=== PATIENT | female | born 1965 | race Caucasian/White ===

== ENCOUNTER 2017-11-04 19:44 | Outpatient (REF) | payer BC, SELFPAY ==
--- NOTE | 2017-11-04 16:15 | PAPFT_PTH ---
PATIENT: Keri Rios LOC: [facility] U#:[id number] AGE/SX: 51/F ROOM: RE11/04/[address]: Judy Melgoza APRN : 1965 BED: DIS: 11/04/2017 SPEC #: [id number] RECD: 11/05/17 13:19 STATUS: HENIRK RELoc #: [id number] JAQUELINE: 11/04/17 16:[address]: Judy Melgoza DEPT: [facility] Cytology RECD BY: Reta Carter Tissues: 1 - CX/ENDOCX FOR PAP SMEARS Procedures: PAP THIN PREP/UVM Screening HPV DNA PROBE Comments: [id number]
== END 2017-11-04 20:04 ==
LOC: LBN 19:44
PROVIDERS: PCP Nurse Practitioner Family; Visit Provider Nurse Practitioner Family
DX: Z12.4 Encounter for screening for malignant neoplasm of cervix (principal); Z11.51 Encounter for screening for human papillomavirus (HPV)
CPT/HCPCS: 88142; 87624

== ENCOUNTER 2017-11-12 01:49 | Outpatient (CLI) | payer BC, SELFPAY ==
[2017-11-12 09:58] LABS: Anion Gap 8.9 mmol/L (3-11); BUN 3 mg/dL (7-18); CO2 28.1 mmol/L (21.0-32.0); CREATININE 0.78 mg/dL (0.55-1.02); Calcium 8.9 mg/dL (8.5-10.1); Chloride 101 mmol/L (98-107); Cholesterol 159 mg/dL (50-200); Glucose 85 mg/dL (70-100); HDL Cholesterol 73 mg/dL (40-60); LDL CHOLESTEROL 80 mg/dL (<100); Potassium 4.3 mmol/L (3.5-5.1); Sodium 138 mmol/L (136-145); TSH (W/Ref FT4) 0.87 uIU/mL (0.358-3.74); Triglyceride 44 mg/dL (30-150)
[2017-11-13 11:29] LABS: HIV-1/2 Ag & Ab Screen Negative (NEGAT)
[2017-11-13 12:15] LABS: Hepatitis C Ab w Rflx HCV PCR Negative (NEGAT)
== END 2017-11-12 02:09 ==
PROVIDERS: PCP Nurse Practitioner Family; Visit Provider Nurse Practitioner Family
DX: R03.0 Elevated blood-pressure reading, without diagnosis of hypertension (principal); E03.9 Hypothyroidism, unspecified; F41.8 Other specified anxiety disorders; Z13.220 Encounter for screening for lipoid disorders; Z01.84 Encounter for antibody response examination
CPT/HCPCS: 36415; 80048; 80061; 83721; 86803; 87389; 84443

== ENCOUNTER 2017-11-26 01:26 | Outpatient (CLI) | payer BC, SELFPAY ==
--- NOTE | 2017-11-14 16:05 | DI.MAMMO_ITS ---
SYMPTOM/DIAGNOSIS: SCREENING, Z12.31 MAMMOGRAMS: Mammograms were interpreted according to the usual protocol including computer analysis with CAD system, tomosynthesis and C view imaging. The breast tissue is heterogeneously radiodense which limits the sensitivity of the study. There is no dominant mass. There are no suspicious calcifications. There has been no significant interval change when compared with prior images. SUMMARY: No evidence fo malignancy. Category 1. Yearly screening mammography is recommended. Breast density, Category C. SA ASSESSMENT OF FINDINGS: Negative. Category 1. Patient will receive a letter notifying them of these results. Bi-RADS category C. The breasts are heterogeneously dense, which may obscure small masses.
== END 2017-11-26 01:46 ==
PROVIDERS: PCP Nurse Practitioner Family; Visit Provider Nurse Practitioner Family
DX: Z12.31 Encounter for screening mammogram for malignant neoplasm of breast (principal)
CPT/HCPCS: 77063; 77067

== ENCOUNTER 2018-10-31 15:23 | Emergency (ER) | payer BC, SELFPAY ==
[2018-10-31 15:30] VITALS: BP 169/92; PULSE 80; RESP 18; TEMP 36.6; O2SAT 100
--- NOTE | 2018-10-31 16:21 | DI.RAD_ITS ---
EXAM: XR FOOT LT COMPLETE INDICATION: pain, injury 5th toe. COMPARISON: RIGHT FOOT COMPLETE from 11/08/2010 TECHNIQUE: 2D digital imaging was performed. FINDINGS: There is a fracture at the base of the proximal phalanx of the little toe. Minimal comminution and di splacement is identified. The fracture extends into the intra-articular joint. There is no evidence of dislocation.
--- NOTE | 2018-10-31 16:22 | W.ED.GENAD ---
Discharge Plan Disposition Patient Disposition: HOME Condition: Good Discharge Details Chief Complaint: Orthopedic Clinical Impression: Fracture of toe Primary Care Provider: Judy Melgoza ED Provider: Joanne Rao Home Meds and New Rx's Prescriptions: Continued olopatadine [Patanol] 5 ML drops 1 drp Ophthalmic BID PRNRF: 0 loratadine [Claritin Liqui-Gel] 10 MG capsule 10 mg PO DAILY RF: 0 albuterol sulfate [ProAir HFA] 8.5 GM HFA aerosol inhaler 1 - 2 puff Inhalation Q4-6H PRN Qty: 1 RF: 3 Symbicort 10.2 GM HFA aerosol inhaler 2 puff Inhalation BID Qty: 3 RF: 3 triamcinolone acetonide 0.1 % cream 1 applic Topical 2-4 times daily PRN Qty: 15 RF: 2 levothyroxine 50 mcg tablet 50 mcg PO DAILY Qty: 90 RF: 3 sertraline 100 mg tablet 150 mg PO DAILY Qty: 135 RF: 3 naproxen sodium [Aleve] 220 MG capsule 2 tab PO BID PRNRF: 0 Discharge Instructions Instructions: Toe Fracture (ED) Additional Instructions: Rest. Activities as tolerated. Elevate injury to prevent swelling. Ice to the area of discomfort for 15 min. 3-5 times daily. Motrin every 8 hours with food or Tylenol every 6 hours for soreness if needed over the counter for comfort. Followup with orthopedic doctor for reevaluation. Return for any worsening or concerns sooner if needed. Stand Alone Forms: Work Release Referrals: Silverio Gutierrez MD [ [facility] STAFF PHYSICIAN] - Discharge Data Discharge Date/Time-TO BE ENTERED AT DEPARTURE: 10/31/18 17:33 Medical Decision Making Patient injured her foot last night ultimately fractured the proximal aspect of her fifth toe. This is an intra-articular fracture which will be splinted with lee tape in a postop shoe. Crutches provided for support. Encouraged minimal weightbearing for 1 week and then follow-up with orthopedic doctor locally. Patient reports understanding and agrees with plan of care. HPI General Date/Time Provider Initiated Documentation: 10/31/18 15:33. HPI Narrative: Patient presents for complaints of injury to her left foot. Patient reports she was walking and her toe got stuck in a cat bowl. Pt reports injury occurred yesterday. Ecchymosis and pain with ambulation noted since that time. Concern for possible fracture. Patient presents with her toes lee taped. Denies open wounds. Related Data Home Medications Medication Instructions Recorded Confirmed naproxen sodium [Aleve] 2 tab PO BID PRN 02/20/14 10/31/18 olopatadine [Patanol] 1 drp OPHTHALMIC BID PRN drp 08/23/15 10/31/18 loratadine [Claritin Liqui-Gel] 10 mg PO DAILY 05/22/17 10/31/18 albuterol sulfate [ProAir HFA] 1 - 2 puff INHALATION Q4-6H PRN #1 09/10/17 10/31/18 inhaler Symbicort 2 puff INHALATION BID #3 inhaler 10/09/17 10/31/18 triamcinolone acetonide 0.1 % 1 applic TOPICAL 2-4 times daily 01/25/18 10/31/18 topical cream PRN #15 gm levothyroxine 50 mcg tablet 50 mcg PO DAILY #90 tab-cap 09/16/18 10/31/18 sertraline 100 mg tablet 150 mg PO DAILY #135 tab 09/16/18 10/31/18 Previous Rx's Medication Instructions Recorded albuterol sulfate [ProAir HFA] 1 - 2 puff INHALATION Q4-6H PRN #1 09/10/17 inhaler Symbicort 2 puff INHALATION BID #3 inhaler 10/09/17 triamcinolone acetonide 0.1 % 1 applic TOPICAL 2-4 times daily 01/25/18 topical cream PRN #15 gm levothyroxine 50 mcg tablet 50 mcg PO DAILY #90 tab-cap 09/16/18 sertraline 100 mg tablet 150 mg PO DAILY #135 tab 09/16/18 Allergies Allergy/AdvReac Type Severity Reaction Status Date / Time Sulfa (Sulfonamide Allergy Unknown RASH, FEVER Verified 10/31/18 15:34 Antibiotics) General Stated Complaint: Orthopedic JEANNE: 4 Review of Systems Review of Systems Narrative: CONSTITUTIONAL: The patient denies fevers, chills. EYES: Denies vision changes, blurry vision, or eye pain. ENT: Denies hearing changes, tinnitus, vertigo, sore throat. CARDIAC: Denies chest pain, SOB. RESPIRATORY: Denies cough, sputum. Denies difficulty breathing. GASTROINTESTINAL: Denies abdominal pain, changes in bowel, vomiting or nausea. GENITOURINARY: Denies dysuria, or frequency of urination. MUSCULOSKELETAL: Limping gait, toe pain NEUROLOGIC: Denies headaches, Denies focal weakness. Denies numbness. INTEGUMENT: Denies rashes. PSYCHIATRIC: Denies behavior changes. Denies anxiety or depression. ENDOCRINOLOGY: Denies fatigue. PSYCHIATRY: Denies depression, agitation or anxiety limited [facility] Medical History Allergic rhinitis Allergic rhinitis (Chronic 05/02/13) Allergy shots Anxiety and depression Anxiety and depression (Chronic) Chronic otitis media (Chronic 05/02/13) Conductive hearing loss (Chronic 05/02/13) Deviated septum (Chronic) Dysfunction of left eustachian tube (Chronic 02/27/16) High serum high density lipoprotein (HDL) (Chronic) 11/2017 labs: 10-year ASCVD risk = ~1.1% --> no statin indicated at this time Hypothyroidism Hypothyroidism (Chronic 09/15/16) Right carpal tunnel syndrome (Chronic 03/01/15) 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) Unspecified asthma (Chronic 04/02/11) Family History Mother Hypertensive disorder, systemic arterial Heart disease Mental disorder depression Father Functional vision problem Heart disease Social History Smoking/Tobacco Use Status: Never Alcohol Intake: current Alcohol Intake frequency: a few times a month Drug use: Never Substance use type: does not use current occupation: Teacher What type of physical activity do you participate in: regular exercise Frequency: daily Do you feel safe at home: Yes Do you feel safe in your relationship?: Yes Exam Narrative Exam Narrative: CONST: Healthy appearing patient, in no acute distress. Well hydrated. Alert and alert. HENMT: Head nomocephalic, normal to inspection. Atraumatic. Hearing grossly normal. EYES: General normal appearance. Alignment normal. Eyelids normal. Conjunctiva normal. NECK: Normal visual inspection. FROM. Trachea midline. No Midline tenderness. CHEST: Normal insepection of the chest. RESP: Normal respiratory effort. Speaking full sentences. No cough. No audible wheezing. No retractions. CARDIO: No JVD. MUSCULOSKELETAL: Normal Gait. FROM of all extremities. No knee pain with palpation, sharp pain with palpation with calf pain with palpation. No Achilles tenderness. Achilles tendon intact. No ankle pain with palpation. Pulses intact to the dorsal aspect of the foot. Ecchymosis and swelling noted at the base of the fourth and fifth toes on the left foot. Tenderness with palpation through the distal metatarsal as well as the proximal toe. Cap refill normal distally. Sensation intact distally. No open wounds. SKIN: Normal. Dry. No rashes. NEURO: Alert and awake. Speech clear. PSYCH: Normal affect. Cooperative. Course Vital Signs Vital signs: Vital Signs Temperature 36.6 C 10/31/18 15:30 Pulse 80 10/31/18 15:30 Respiratory Rate 18 10/31/18 15:30 Blood Pressure 169/92 H 10/31/18 15:30 Pulse Oximetry 100 10/31/18 15:30 Temperature 36.6 C 10/31/18 15:30 Temperature Source Temporal Artery Scan 10/31/18 15:30 Pulse 80 10/31/18 15:30 Respiratory Rate 18 10/31/18 15:30 Respiratory Effort Non-Labored 10/31/18 15:33 Blood Pressure 169/92 H 10/31/18 15:30 Blood Pressure Position Supine 10/31/18 15:30 Pulse Oximetry 100 10/31/18 15:30 Oxygen Delivery Method Room Air 10/31/18 15:30 Oxygen Flow Rate 0 10/31/18 15:30 Pain Level 5 10/31/18 15:34
--- NOTE | 2018-10-31 17:03 | DI.VRAD_ITS ---
PROCEDURE INFORMATION: Exam: XR Left Foot Complete Exam date and time: 10/31/2018 4:22 PM Clinical history: 52 years old, female; Other: Pain, injury 5th toe TECHNIQUE: Imaging protocol: XR Left foot. Views: 3 or more views. COMPARISON: No relevant prior studies available. FINDINGS: Bones/joints: There is a minimally comminuted and displaced fracture to the base of the little toe proximal phalanx with associated intra-articular extension of fracture lines. No other acutely displaced fractures are appreciated. Soft tissues: There is soft tissue swelling about the little toe. IMPRESSION: Fracture at the base of the little toe proximal phalanx, detailed above. Dictated and Authenticated by: Augie Blue MD. Ordering:RODGER Rubio MD
== END 2018-10-31 17:33 | disposition home or self-care (01) ==
PROVIDERS: Emergency Provider Physician Assistant; PCP Nurse Practitioner Family
DX: S92.515A Nondisplaced fracture of proximal phalanx of left lesser toe(s), initial encounter for closed fracture (principal); W22.8XXA Striking against or struck by other objects, initial encounter
CPT/HCPCS: 28510; 73630; E0114

== ENCOUNTER 2018-11-24 15:57 | Outpatient (CLI) | payer BC, SELFPAY ==
[2018-11-24 17:04] LABS: TSH (W/Ref FT4) 1.91 uIU/mL (0.36-3.74)
== END 2018-11-24 16:17 ==
PROVIDERS: PCP Nurse Practitioner Family; Visit Provider Nurse Practitioner Family
DX: E03.9 Hypothyroidism, unspecified (principal)
CPT/HCPCS: 36415; 84443

== ENCOUNTER 2019-11-25 11:33 | Outpatient (REF) | payer BC, SELFPAY | END 2019-11-25 11:53 | LOC: LBN 11:33 | PROVIDERS: PCP Nurse Practitioner Family; Visit Provider Student in an Organized Health Care Education/Training Program | DX: R30.0 Dysuria (principal); R35.0 Frequency of micturition; R31.0 Gross hematuria | CPT/HCPCS: 87077; 87086; 87186 ==

== ENCOUNTER 2019-12-08 11:21 | Outpatient (REF) | payer BC, SELFPAY | END 2019-12-08 11:41 | LOC: LBN 11:21 | PROVIDERS: PCP Nurse Practitioner Family; Visit Provider Nurse Practitioner Family | DX: N39.0 Urinary tract infection, site not specified (principal) | CPT/HCPCS: 87086 ==

== ENCOUNTER 2019-12-27 01:59 | Outpatient (CLI) | payer BC, SELFPAY ==
[2019-12-27 15:30] LABS: TSH (W/Ref FT4) 1.89 uIU/mL (0.36-3.74)
== END 2019-12-27 02:19 ==
PROVIDERS: PCP Nurse Practitioner Family; Visit Provider Nurse Practitioner Family
DX: E03.9 Hypothyroidism, unspecified (principal)
CPT/HCPCS: 36415; 84443

== ENCOUNTER 2020-02-21 01:26 | Outpatient (CLI) | payer BC, SELFPAY ==
--- NOTE | 2020-02-21 09:00 | DI.MAMMO_ITS ---
EXAM: MAMMO SCREENING CLINICAL HISTORY: screening,Z12.39 TECHNIQUE: Mammograms were interpreted according to the usual protocol including computer analysis w [employer] CAD system, tomosynthesis and C-view imaging. COMPARISON: 2011 through 2017 FINDINGS: The breasts are composed of heterogeneously dense fibroglandular densities, Breast Density category C . No suspicious masses or suspicious microcalcifications are seen. No skin thickening or abnormal axillary lymph nodes are seen. There has been no significant change from prior exams. IMPRESSION: BI-RADS Category 1, Negative mammogram. Yearly screening mammography is recommended. Breast Density Category C, heterogeneously Dense. The mammogram demonstrates the patient's breast tissue is dense. Dense breast tissue is very common a nd is not abnormal but dense breast tissue can make it harder to find cancer on a mammogram. Also, de nse breast tissue may increase breast cancer risk. This information about the result of the mammogram report was provided to the patient to raise their awareness. Use this report when you speak with the patient about their risks for breast cancer, which includes their family history. At that time, you may recommend additional screening tests (Ultrasound or MRI) as they might be useful based on their r isk. A negative radiographic report should not delay biopsy if a dominant or clinically suspicious mass is present. Up to ten percent of cancers are not identified on mammography. A negative report may reinforce clinical impression. Adenosis and dense breasts may obscure an underlying neoplasm. False positive reports average 6 to 10%.
== END 2020-02-21 01:46 ==
PROVIDERS: PCP Nurse Practitioner Family; Visit Provider Nurse Practitioner Family
DX: Z12.31 Encounter for screening mammogram for malignant neoplasm of breast (principal)
CPT/HCPCS: 77063; 77067

== ENCOUNTER 2020-04-12 09:44 | Outpatient (CLI) | payer BC, SELFPAY ==
--- NOTE | 2020-04-12 09:30 | RT.EKG_ITS ---
APPROVED REPORT Exam: Resting ECG Patient Location: O HR:72 bpm ECG Measurements Heart Rate 72 AXIS OR 138 P 54 QRSd 79 QRS 55 QT 374 T 24 QTc 409 Conclusion Sinus rhythm...normal P axis, V-rate 60- 99 Probable left atrial enlargement...P >50mS, <-0.10mV V1
== END 2020-04-12 09:45 | disposition home or self-care (01) ==
LOC: DI.KIM 09:45
PROVIDERS: PCP Nurse Practitioner Family; Visit Provider Nurse Practitioner Family
DX: R00.2 Palpitations (principal); R01.1 Cardiac murmur, unspecified
CPT/HCPCS: 93010

== ENCOUNTER 2020-04-13 15:19 | Outpatient (CLI) | payer BC, SELFPAY ==
--- NOTE | 2020-04-30 10:39 | W.ZIOMONITOR ---
Date of service: 04/30/20 Time of Service: 10:39 14 Day Reimbursement Auditor Referring Provider:: Buddy Indications:: Arrhythmia Note: This is a 14-day monitor order for indication of arrhythmia. ?The patient was in normal sinus rhythm for the majority of the recording with an average heart rate of 76 bpm. ?There were 25 episodes of supraventricular tachycardia with the longest lasting 24 beats. The maximum rate was 176 bpm. Symptoms were not recorded during these episodes. ?There were rare PACs and rare PVCs. ?There were no episodes of ventricular tachycardia. ?There were no episodes of atrial fibrillation, no pauses greater than 3 seconds and no evidence of high degree heart block. ?There were no patient triggered events.
== END 2020-04-13 15:20 | disposition home or self-care (01) ==
PROVIDERS: PCP Nurse Practitioner Family; Visit Provider Nurse Practitioner Family
DX: I49.8 Other specified cardiac arrhythmias (principal)
CPT/HCPCS: 93246

== ENCOUNTER 2020-05-08 02:42 | Outpatient (CLI) | payer BC, SELFPAY ==
--- NOTE | 2020-05-08 13:50 | DI.US_ITS ---
APPROVED REPORT EXAM: Comprehensive 2D, Doppler, and color-flow Echocardiogram Patient Location: Out-Patient Surveying Crew Rodman: Shelia Mills RDCS (AE) Indications: Abnormal EKG, Murmur Other Information Study Quality: Good Conclusion Left Ventricle : The left ventricle is normal size. The left ventricular systolic function is normal. The left ventricular ejection fraction is within the normal range. There is normal left ventricular wall thickness. There is normal LV segmental wall motion. The left ventricular diastolic function is normal. LVEF is 60%. Right Ventricle : The right ventricle is normal size. The right ventricular systolic function is norm al. The RVSP is 22.8 mmHg. Atria : The left atrium size is normal. The right atrium size is normal. Mitral Valve : The mitral valve is normal in structure. Mild mitral regurgitation. No evidence of mary anne ral valve stenosis. Great Vessels : The aortic root is normal in size. The ascending aorta is mildly dilated. Aortic arch is normal in caliber. IVC is normal in size and collapses >50% with inspiration. Please see remainder of study for further details. Wall motion Left Ventricle The left ventricle is normal size. The left ventricular systolic function is normal. The left ventric ular ejection fraction is within the normal range. There is normal left ventricular wall thickness. T here is normal LV segmental wall motion. The left ventricular diastolic function is normal. There is no ventricular septal defect visualized. LVEF is 60%. Right Ventricle The right ventricle is normal size. The right ventricular systolic function is normal. The RVSP is 22 .8 mmHg. Atria The left atrium size is normal. The right atrium size is normal. The interatrial septum is intact wit h no evidence for an atrial septal defect. Aortic Valve The aortic valve is normal in structure. Aortic valve is trileaflet. There is no aortic valvular sten osis. No aortic regurgitation is present. Mitral Valve The mitral valve is normal in structure. No evidence of mitral valve stenosis. Mild mitral regurgitat ion. Tricuspid Valve The tricuspid valve is normal in structure. There is no tricuspid valve stenosis. Mild tricuspid regu rgitation. Pulmonic Valve The pulmonary valve is normal in structure. There is no pulmonic valvular stenosis. There is no pulmo renay valvular regurgitation. Great Vessels The aortic root is normal in size. The ascending aorta is mildly dilated. Aortic arch is normal in ca liber. IVC is normal in size and collapses >50% with inspiration. Pericardium There is no pericardial effusion. 2D Dimensions IVSD d PLAX 0.71 cm F: 0.6-1.0 LV Vol A2C d MOD 84.8 mL LVPW d PLAX 0.71 cm F: 0.6 - 1.0 LV Vol A4C d MOD 74.8 mL LVID d PLAX 4.39 cm F: 3.8 - 5.2 LA vol/ BSA A2C s A-L 21.6 mL/m2 LVDs 2.80 cm F: 2.2 - 3.5 LA vol/ BSA A4C s A-L 28.7 mL/m2 Ao Root d 2.86 cm F: 2.7 - 3.3 LA Vol/ BSA Biplane s A-L 27.9 mL/m2 RA Area A4C 16.01 cm2 LA Area A4C s MOD 15.90 cm2 RA Vol/ BSA A4C s A-L 29.5 mL/m2 LA Area A2C s MOD 12.32 cm2 Ao Asc Diam d 3.44 cm F: 2.3 - 3.1 LV EF A4C MOD 61.2 % LV EF Teichholz 65.3 % LV EF A2C MOD 58.5 % LVEF ([place]'s) 61.19 % F: 54 - 74 LV EF Biplane MOD 61.2 % LV Volume 70.84 mL F: 46 - 106 SV 51.77 mL LV Volume Index 47.86 mL/m2 F: 29 - 61 SV Index 34.92 mL/m2 LV Vol Biplane MOD 84.6 mL FS 35.60 % M-Mode TAPSE 2.91 cm (M/F) >1.7 LV Diastology MV E' medial 0.092 (>0.07 m/s) E/A Ratio 1.6 LV E/e MED 8.50 (<14) MV E Vmax 0.78 (0.4-1.3 m/s) MV E' lateral 0.122 (>0.1 m/s) MV A Vmax 0.50 (0.4-1.3 m/s) LV E/e LAT 6.35 (<14) MV E/A Ratio 1.45 MV E/E' medial 8.53 MV E/E' lateral 6.40 Aortic Valve LVOT Area 2.72 cm2 AoV Area Vmax 2.57 cm2 LVOT Vmax 1.02 m/s AoV Area/ BSA (Vmax) 1.73 cm2/m2 LVOT Mean Elmer. 0.64 m/s COURT Mean Elmer. 2.17 cm2 LVOT Peak Grad 4.2 mmHg CUORT Mean Elmer. Index 1.47 cm2/m2 LVOT Mean Grad 1.9 mmHg LVOT VTI 0.231 m LVOT Diam s 1.85 cm AoV Vmax 1.09 m/s Velocity Ratio 0.93 AoV Mean Elmer. 0.80 m/s AoV Peak Grad 4.7 mmHg LVOT SV 62.93 mL AoV Mean Grad 2.8 mmHg AoV VTI 0.268 m AoV Area VTI 2.35 cm2 AoV Area/ BSA (VTI) 1.58 cm/m2 Mitral Valve MV DT 195 (160-240 msec) MR Vmax 5.70 m/s MV PHT 56 msec MR VTI 1.973 m MV Area PHT 3.90 cm2 MR Peak Grad 129.8 mmHg MV VTI 0.236 m MR Mean Grad 102.5 mmHg MV VTI Annulus 0.249 m MR PISA Radius 0.57 cm MV Area VTI 2.83 (4.0-6.0 cm2) MR EROA 0.13 cm2 MR Aliasing Velocity 0.35 m/s MR PISA 2.08 cm2 Pulmonary Valve PV Vmax 0.84 (0.5-1.5 m/s) RVOT Peak Gr. 1.91 mmHg PV Peak Grad 2.8 mmHg RVOT Mean Gr. 1.25 mmHg PV Mean Grad 2.1 mmHg RVOT VTI 0.152 m PV VTI 0.180 m RVOT Vmax 0.69 m/s Tricuspid Valve TR Peak Grad 19.7 mmHg TR Vmax 2.22 m/s RA Pressure 3.00 mmHg RVSP (TR) 22.8 mmHg
== END 2020-05-08 03:02 ==
PROVIDERS: PCP Nurse Practitioner Family; Visit Provider Nurse Practitioner Family
DX: R94.31 Abnormal electrocardiogram [ECG] [EKG] (principal); R01.1 Cardiac murmur, unspecified; I34.0 Nonrheumatic mitral (valve) insufficiency; I77.810 Thoracic aortic ectasia
CPT/HCPCS: 93306

== ENCOUNTER 2020-06-18 14:27 | Outpatient (REF) | payer BC, SELFPAY | END 2020-06-18 14:28 | disposition home or self-care (01) | LOC: LBN 14:27 | PROVIDERS: PCP Nurse Practitioner Family; Visit Provider Family Medicine | DX: R30.0 Dysuria (principal) | CPT/HCPCS: 87086 ==

== ENCOUNTER 2021-03-20 01:51 | Outpatient (CLI) | payer BC, SELFPAY ==
[2021-03-20 12:56] LABS: Anion Gap 8.1 mmol/L (3-11); BUN 10 mg/dL (7-18); CO2 27.9 mmol/L (21.0-32.0); CREATININE 0.6 mg/dL (0.55-1.02); Calcium 8.5 mg/dL (8.5-10.1); Chloride 95 mmol/L (98-107); Glucose 82 mg/dL (74-106); Potassium 4.3 mmol/L (3.5-5.1); Sodium 131 mmol/L (136-145)
== END 2021-03-20 01:52 | disposition home or self-care (01) ==
LOC: LBO 01:51
PROVIDERS: PCP Nurse Practitioner Family; Visit Provider Nurse Practitioner Family
DX: E03.9 Hypothyroidism, unspecified (principal); Z13.1 Encounter for screening for diabetes mellitus
CPT/HCPCS: 36415; 80048; 84443

== ENCOUNTER 2021-03-28 14:26 | Outpatient (REF) | payer BC, SELFPAY ==
[2021-03-28 19:16] LABS: Sodium, Urine 36 mmol/L
[2021-03-28 20:19] LABS: Sodium 128 mmol/L (136-145)
[2021-03-29 17:39] LABS: Osmolality, Urine 114 mOsm/kg (150-1,150)
== END 2021-03-28 14:27 | disposition home or self-care (01) ==
LOC: LBN 14:26
PROVIDERS: PCP Nurse Practitioner Family; Visit Provider Nurse Practitioner Family
DX: E87.1 Hypo-osmolality and hyponatremia (principal)
CPT/HCPCS: 83935; 84295; 84300

== ENCOUNTER 2021-04-08 02:58 | Outpatient (CLI) | payer BC, SELFPAY ==
[2021-04-08 15:34] LABS: Anion Gap 8.9 mmol/L (3-11); BUN 8 mg/dL (7-18); CO2 26.1 mmol/L (21.0-32.0); CREATININE 0.6 mg/dL (0.55-1.02); Calcium 9.2 mg/dL (8.5-10.1); Chloride 97 mmol/L (98-107); Glucose 101 mg/dL (74-106); Sodium 132 mmol/L (136-145)
== END 2021-04-08 02:59 | disposition home or self-care (01) ==
LOC: LBO 02:58
PROVIDERS: PCP Nurse Practitioner Family; Visit Provider Nurse Practitioner
DX: E87.1 Hypo-osmolality and hyponatremia (principal)
CPT/HCPCS: 36415; 80048

== ENCOUNTER 2021-04-23 01:30 | Outpatient (CLI) | payer BC, SELFPAY ==
[2021-04-23 13:27] LABS: Sodium, Urine 6 mmol/L
[2021-04-23 14:38] LABS: Anion Gap 8.4 mmol/L (3-11); BUN 7 mg/dL (7-18); CO2 27.6 mmol/L (21.0-32.0); CREATININE 0.7 mg/dL (0.55-1.02); Calcium 8.9 mg/dL (8.5-10.1); Chloride 97 mmol/L (98-107); Glucose 90 mg/dL (74-106); Potassium 4.2 mmol/L (3.5-5.1); Sodium 133 mmol/L (136-145)
[2021-04-23 22:27] LABS: Osmolality, Urine 90 mOsm/kg (150-1,150)
== END 2021-04-23 01:31 | disposition home or self-care (01) ==
LOC: LBO 01:30
PROVIDERS: PCP Nurse Practitioner Family; Visit Provider Nurse Practitioner Family
DX: E87.1 Hypo-osmolality and hyponatremia (principal)
CPT/HCPCS: 36415; 80048; 83935; 84300

== ENCOUNTER → 2021-07-05 00:57 | Outpatient (CLI) | payer BC, SELFPAY ==
--- NOTE | 2021-07-05 15:06 | DI.RAD_ITS ---
Exam(s) XR ANKLE LT COMPLETE EXAM: XR ANKLE LT COMPLETE CLINICAL HISTORY: Likely sprain, evaluate for stress frx, S93.402A TECHNIQUE: 2D digital imaging was performed. Four views. COMPARISON: CR RIGHT ANKLE COMPLETE from 10/12/2009 FINDINGS: BONES: No acute fracture is present. No bony destructive lesion is seen. JOINTS:The ankle mortise is normally aligned. SOFT TISSUE: Normal. IMPRESSION: Unremarkable radiographs of the left ankle. DATA REPOSITORY: RADIATION DOSE DELIVERED:
== END ==
PROVIDERS: PCP Nurse Practitioner Family; Visit Provider Family Medicine
DX: S93.402A Sprain of unspecified ligament of left ankle, initial encounter (principal); M25.572 Pain in left ankle and joints of left foot
CPT/HCPCS: 73610

== ENCOUNTER 2021-10-30 02:58 | Outpatient (CLI) | payer BC, SELFPAY ==
[2021-10-30 15:54] LABS: Anion Gap 8.1 mmol/L (3-11); BUN 12 mg/dL (7-18); CO2 28.9 mmol/L (21.0-32.0); CREATININE 0.8 mg/dL (0.55-1.02); Calcium 9.2 mg/dL (8.5-10.1); Chloride 95 mmol/L (98-107); Estimated GFR 85.89 (mL/min/1.73m2); Glucose 99 mg/dL (74-106); Potassium 4.2 mmol/L (3.5-5.1); Sodium 132 mmol/L (136-145)
== END 2021-10-30 02:59 | disposition home or self-care (01) ==
LOC: LBO 02:58
PROVIDERS: PCP Nurse Practitioner Family; Visit Provider Nurse Practitioner Family
DX: E87.1 Hypo-osmolality and hyponatremia (principal)
CPT/HCPCS: 36415; 80048

== ENCOUNTER 2022-04-17 02:52 | Outpatient (CLI) | payer BC, SELFPAY ==
[2022-04-17 10:39] LABS: ALT 20 U/L (14-59); AST 21 U/L (15-37); Alkaline Phosphatase 92 U/L (46-116); Anion Gap 6.3 mmol/L (3-11); BUN 7 mg/dL (7-18); Bilirubin, Total 0.6 mg/dL (0.2-1.0); CO2 29.7 mmol/L (21.0-32.0); CREATININE 0.7 mg/dL (0.55-1.02); Calcium 9.1 mg/dL (8.5-10.1); Calculated LDL 106 mg/dL (<100); Chloride 97 mmol/L (98-107); Cholesterol 190 mg/dL (<200); Estimated GFR 100.19 (mL/min/1.73m2); Glucose 101 mg/dL (74-106); HDL Cholesterol 74 mg/dL (40-60); Potassium 4.6 mmol/L (3.5-5.1); Sodium 133 mmol/L (136-145); TSH (W/Ref FT4) 1.59 uIU/mL (0.36-3.74); Total Protein 7.2 g/dL (6.4-8.2); Triglyceride 50 mg/dL (<150)
== END 2022-04-17 02:53 | disposition home or self-care (01) ==
LOC: LBO 02:52
PROVIDERS: PCP Nurse Practitioner Family; Visit Provider Nurse Practitioner Family
DX: E78.5 Hyperlipidemia, unspecified (principal); E03.9 Hypothyroidism, unspecified; I10 Essential (primary) hypertension; E87.1 Hypo-osmolality and hyponatremia; Z13.1 Encounter for screening for diabetes mellitus
CPT/HCPCS: 36415; 80053; 80061; 84443

== ENCOUNTER 2022-05-08 01:30 | Outpatient (CLI) | payer BC, SELFPAY ==
--- NOTE | 2022-05-08 08:15 | DI.MAMMO_ITS ---
Exam(s) MAMMO SCREENING EXAM: MAMMO SCREENING CLINICAL HISTORY: screening,z12.39 TECHNIQUE: Mammograms were interpreted according to the usual protocol including computer analysis w [employer] CAD system, tomosynthesis and C-view imaging. COMPARISON: 2013 through 2019 FINDINGS: The breasts are composed of heterogeneously dense fibroglandular densities, Breast Density category C . No suspicious masses or suspicious microcalcifications are seen. No skin thickening or abnormal axillary lymph nodes are seen. There has been no significant change from prior exams. IMPRESSION: BI-RADS Category 1, Negative mammogram. Yearly screening mammography is recommended. Breast Density Category C, heterogeneously Dense. The mammogram demonstrates the patient's breast tissue is dense. Dense breast tissue is very common a nd is not abnormal but dense breast tissue can make it harder to find cancer on a mammogram. Also, de nse breast tissue may increase breast cancer risk. This information about the result of the mammogram report was provided to the patient to raise their awareness. Use this report when you speak with the patient about their risks for breast cancer, which includes their family history. At that time, you may recommend additional screening tests (Ultrasound or MRI) as they might be useful based on their r isk. A negative radiographic report should not delay biopsy if a dominant or clinically suspicious mass is present. Up to ten percent of cancers are not identified on mammography. A negative report may reinforce clinical impression. Adenosis and dense breasts may obscure an underlying neoplasm. False positive reports average 6 to 10%.
== END 2022-05-08 01:50 ==
LOC: DI 01:30
PROVIDERS: PCP Nurse Practitioner Family; Visit Provider Nurse Practitioner Family
DX: Z12.31 Encounter for screening mammogram for malignant neoplasm of breast (principal)
CPT/HCPCS: 77063; 77067

== ENCOUNTER 2022-06-17 13:31 | Outpatient (CLI) | payer BC, SELFPAY ==
--- NOTE | 2022-06-17 13:42 | DI.RAD_ITS ---
Exam(s) XR CERVICAL SPINE COMP 4-5V EXAM: XR CERVICAL SPINE COMP 4-5V CLINICAL HISTORY: Radicular symptoms in C8 distritibution M79.2 NEURALGIA AND NEURITIS, PAIN. TECHNIQUE: 2D digital imaging was performed. COMPARISON: No exams were available for comparison FINDINGS: Six views There is no evidence acute fracture nor offset of the spinal laminar line. There is moderate disc sp maddie narrowing C4-5, C5-6, and C6-7 levels. There is mild anterolisthesis of C4 upon C5 related to fa cet arthropathy. There is multilevel facet arthropathy here. On the oblique views there are multile [place] Luschka joint osteophytes which are most prominent on the left side at C4-5, C5-6 and C6-7 levels . There are no cervical ribs. IMPRESSION: Multilevel chronic degenerative disc disease. Multilevel facet arthrosis with degenerative anterolisthesis of C 4 upon C5 as well as C3 upon C4. DATA REPOSITORY: RADIATION DOSE DELIVERED:
== END 2022-06-17 13:51 ==
LOC: DI 13:31
PROVIDERS: PCP Nurse Practitioner Family; Visit Provider Family Medicine
DX: M79.2 Neuralgia and neuritis, unspecified (principal); M51.36 Other intervertebral disc degeneration, lumbar region
CPT/HCPCS: 72050

== ENCOUNTER 2022-07-28 10:37 | Day surgery (SDC) | payer BC, SELFPAY ==
--- NOTE | 2022-07-27 19:07 | W.ANESPRE ---
General Info Date of Service Date Performed: 07/28/22 Height: 5 ft 2 in Weight: 55.338 kg Body Mass Index (BMI): 22.3 Surgical Procedure: Operation Date: 07/28/22 12:05 Proposed Procedure Side Surgeon anupama Blancas MD Meds Allergies and Home Medications Allergies Allergy/AdvReac Type Severity Reaction Status Date / Time Sulfa (Sulfonamide Allergy Unknown RASH, FEVER Verified 07/28/22 10:58 Antibiotics) amoxicillin AdvReac Intermediate Diarrhea Verified 07/28/22 10:58 Home Medication Medication Instructions Recorded loratadine 10 mg capsule (Claritin 10 mg PO DAILY PRN 05/22/17 Liqui-Gel) ascorbate calcium (vitamin C) 500 500 mg PO BID 12/29/19 mg tablet calcium carbonate 600 mg-vitamin 1 cap PO DIRECTED 12/29/19 D3 12.5 mcg (500 unit) capsule (Calcium 600 with Vitamin D3) cholecalciferol (vitamin D3) 25 25 mcg PO DAILY 12/29/19 mcg (1,000 unit) capsule cyanocobalamin (vitamin B-12) 1,000 mcg PO DAILY 04/12/20 1,000 mcg capsule levothyroxine 50 mcg tablet 50 mcg PO DAILY #90 tab-caps 09/02/21 albuterol sulfate 90 mcg/actuation 1 - 2 puff inhalation Q4-6H PRN ##1 10/23/21 aerosol inhaler (ProAir HFA) triamcinolone acetonide 0.1 % 1 applic topical 2-4 times daily 10/23/21 topical cream PRN #15 grams metoprolol succinate 25 mg 25 mg PO DAILY #90 tab-caps 11/29/21 tablet,extended release 24 hr budesonide-formoterol HFA 160 2 puff inhalation BID ##3 04/24/22 mcg-4.5 mcg/actuation aerosol inhaler (Symbicort) sertraline 100 mg tablet 150 mg PO DAILY #135 tab-caps 04/24/22 acetaminophen 500 mg tablet 500 mg PO Q6H PRN 05/22/22 (Tylenol Extra Strength) ibuprofen 200 mg capsule 200 mg PO Q6H PRN 05/22/22 gabapentin 100 mg capsule 100 mg PO TID #270 caps 07/11/22 Current Visit Medications: Current Medications Generic Name Dose Route Start Last Admin Trade Name Freq PRN Reason Stop Dose Admin Ringer's Solution 1,000 mls @ 80 mls/hr 07/28/22 06:00 IV 08/24/22 23:59 INFUSION AWILDA IV Miscellaneous Supplies 1 each 07/28/22 06:00 Iv Access IV 08/24/22 23:59 DIRECTED AWILDA Sodium Chloride 0 ml 07/28/22 06:00 Normal Saline Flush 10 Ml Syr IV 08/24/22 23:59 PRN PRN Sodium Chloride 0 ml 07/28/22 06:00 Normal Saline 10 Ml Vial IJ 08/24/22 23:59 DIRECTED PRN Sterile Water 0 ml 07/28/22 06:00 Water,Injection,Sterile 10 Ml Vial IJ 08/24/22 23:59 DIRECTED PRN PFSH Active Problems Active Problems: Problem Status Onset Code Allergic rhinitis 05/02/13 J30.9 Chronic otitis media 05/02/13 H66.90 Conductive hearing loss 05/02/13 H90.2 Dysfunction of left eustachian tube 02/27/16 H69.82 Hypothyroidism 09/15/16 E03.9 Right carpal tunnel syndrome 03/01/15 G56.01 Anxiety and depression F41.9, F32.9 Deviated septum J34.2 High serum high density lipoprotein (HDL) R79.89 Asthma J45.909 Heart murmur R01.1 Essential hypertension I10 Hyponatremia E87.1 Radicular pain in left arm M79.2 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 Medical History Medical History Thoracic outlet syndrome Surgical History Surgical History History of tympanostomy tube placement Tobacco Smoking/Tobacco Use Status: Never Passive smoking exposure: No Alcohol Alcohol Intake: current Alcohol intake frequency: a few times a month Substance Use Substance use: Never Substance use type: does not use Vital Signs and Lab Results Lab Results Blood Type / Crossmatch: No Data to Display Complete Blood Count: No Data to Display Complete Metabolic Panel: No Data to Display Liver Function Panel: No Data to Display Coagulation Panel: No Data to Display Cardiac Panel: No Data to Display Arterial Blood Gas: No Data to Display Venous Blood Gas: No Data to Display Pancreas Panel: No Data to Display Thyroid Panel: No Data to Display Infectious Disease: No Data to Display Blood Cultures: No Data to Display Toxicology Panel: No Data to Display Imaging and Studies Imaging and Studies Study information below may be from another EMR and interpreted by another provider. Please see original notes in EMR for more complete details. EKG Summary: 04/29: sinus. Echocardiogram Summary: 04/29: LVEF 60%, mild MR, Anesthesia Assessment and Plan Anesthesia History Personal History: No History of General Anesthesia Family History: No Family History of Anesthesia Complications Exercise Tolerance Exercise Tolerance: Metabolic Equivalents>4 Pertinent Negatives Pertinent Negatives: No Symptoms of GERD, No Major Pulmonary Symptoms or Complaints and No History of CVA/TIA Cardiac & Pulmonary Exam Cardiac Exam: Heart Murmur Present Pulmonary Exam: Clear Bilateral Breath Sounds Implantable Cardiac Device Does patient have a Pacemaker or an ICD?: No Airway Exam Known Difficult Airway: No Mallampati Class: 3 Mouth Opening: Normal (> 3cm) Thyromental Distance: Greater than 3 cm Neck Range of Motion: Known Cervical Instability or radiculopathy (Cervical radiculopathy left (ulnar distribution). Thoracic outlet syndrome right) Neck Circumference: Normal Teeth Condition: Normal Dentition ASA Classification ASA Score: ASA 2 Emergency Case?: No NPO Status NPO Status: NPO Clears >2 hours, Solids >8 hours Anesthesia Plan Resuscitation Status: Full Code Anesthesia Technique: General Anesthesia Airway Planned: Natural Airway Monitors Used: Standard Monitors Preoperative Comments:: 56 yo female for colo. Sig PMHx: HTN, asthma, anxiety/depression, hypothyroid, thoracic outlet syndrome, never smoker, occ EtOH.
--- NOTE | 2022-07-27 19:18 | W.PREOPHP ---
Assessment and Plan Assessment and plan (1) Encounter for screening colonoscopy: Status: Acute Assessment and plan: We reviewed the role of screening colonoscopy as part of routine health maintenance. I explained the risks and benefits of the procedure in simple language. I think she has a good understanding of this and we can proceed. History of Present Illness History of Present Illness Chief Complaint: Screening colonoscopy Narrative: 56 y/o female with history of asthma, anxiety and hypothyroidism presents for her first colonoscopy screening pre-op. She denies a family history of colon cancer. She denies any changes in bowel habits including bloody or black tarry stools, abdominal pain, diarrhea or constipation. She denies constitutional symptoms. Denies use of marijuana or any other recreational or illegal drugs. Since her last visit, she started some gabapentin for left shoulder pain, as well as physical therapy, and has had some relief of her symptoms. PFSH All Active Problems Encounter for screening colonoscopy (Acute) Allergic rhinitis (Chronic 05/02/13) Allergy shots Chronic otitis media (Chronic 05/02/13) Conductive hearing loss (Chronic 05/02/13) Dysfunction of left eustachian tube (Chronic 02/27/16) Hypothyroidism (Chronic 09/15/16) Right carpal tunnel syndrome (Chronic 03/01/15) Pt. states this is incorrect but is actually TOS Anxiety and depression (Chronic) Deviated septum (Chronic) High serum high density lipoprotein (HDL) (Chronic) 04/2022 labs: 10-year ASCVD risk = ~2.6% Asthma (Chronic) Heart murmur (Acute) Essential hypertension (Acute) Hyponatremia (Acute) Radicular pain in left arm (Acute) Cervical spondylarthritis (Acute) Medical History Thoracic outlet syndrome Surgical History History of tympanostomy tube placement Family History Mother Heart disease Mental disorder depression Hypertension Anxiety Depression Father Heart disease Hypertension Maternal Grandmother Diabetes Brother Hypertension Paternal Grandfather Asthma Paternal Grandmother Heart disease Maternal Grandfather Heart disease Hypertension Social History Smoking/Tobacco Use Status: Never Smoking risk assessment performed?: Yes Alcohol Intake: current Alcohol Intake frequency: a few times a month Drug use: Never Substance use type: does not use Adopted: No Caregiver/Support person: No Foster care: No Household members: none Housing: house Communication Needs: Corrective Lenses Education Level: college Details: Bachelor's Do you need help understanding health information?: Rarely current occupation: Teacher - Retired Pets and animals: Yes (6 cats) Pets and animals: cat(s) Sexually active: No Do you think of yourself as: straight/heterosexual Current gender identity: female What is your relationship status?: never How often do you talk on the phone with friends or family?: three or more times per week How often do you get together with friends or relatives?: three or more times per week Do you belong to any clubs or organized social groups?: no Panel score (0-1 are the most socially isolated patients): 1 What type of physical activity do you participate in: walking Duration: 15-30 minutes/day Frequency: daily Yenny/Sikhism: Anabaptism Special yenny needs: No Seatbelt use: always Drive intox or ride w/intox miniature train driver: No Water heater temp set <120 deg: Yes Working smoke detector in home: Yes Fire extinguisher in home: Yes Carbon monox detector in home: Yes Firearms in home: No Do you feel safe at home: Yes Do you feel safe in your relationship?: Yes Meds Allergies and Home Medications Allergies Allergy/AdvReac Type Severity Reaction Status Date / Time Sulfa (Sulfonamide Allergy Unknown RASH, FEVER Verified 07/28/22 10:58 Antibiotics) amoxicillin AdvReac Intermediate Diarrhea Verified 07/28/22 10:58 Home Medications Medication Instructions Recorded Confirmed Type loratadine 10 mg capsule (Claritin 10 mg PO DAILY PRN 05/22/17 07/25/22 History Liqui-Gel) ascorbate calcium (vitamin C) 500 500 mg PO BID 12/29/19 07/28/22 History mg tablet calcium carbonate 600 mg-vitamin 1 cap PO DIRECTED 12/29/19 07/28/22 History D3 12.5 mcg (500 unit) capsule (Calcium 600 with Vitamin D3) cholecalciferol (vitamin D3) 25 25 mcg PO DAILY 12/29/19 07/28/22 History mcg (1,000 unit) capsule cyanocobalamin (vitamin B-12) 1,000 mcg PO DAILY 04/12/20 07/28/22 History 1,000 mcg capsule levothyroxine 50 mcg tablet 50 mcg PO DAILY #90 tab-caps 09/02/21 07/28/22 Rx albuterol sulfate 90 mcg/actuation 1 - 2 puff inhalation Q4-6H PRN ##1 10/23/21 07/25/22 Rx aerosol inhaler (ProAir HFA) triamcinolone acetonide 0.1 % 1 applic topical 2-4 times daily 10/23/21 07/25/22 Rx topical cream PRN #15 grams metoprolol succinate 25 mg 25 mg PO DAILY #90 tab-caps 11/29/21 07/28/22 Rx tablet,extended release 24 hr budesonide-formoterol HFA 160 2 puff inhalation BID ##3 04/24/22 07/28/22 Rx mcg-4.5 mcg/actuation aerosol inhaler (Symbicort) sertraline 100 mg tablet 150 mg PO DAILY #135 tab-caps 04/24/22 07/28/22 Rx acetaminophen 500 mg tablet 500 mg PO Q6H PRN 05/22/22 07/28/22 History (Tylenol Extra Strength) ibuprofen 200 mg capsule 200 mg PO Q6H PRN 05/22/22 07/28/22 History gabapentin 100 mg capsule 100 mg PO TID #270 caps 07/11/22 07/28/22 Rx Exam Const General: cooperative, healthy appearing and comfortable Orientation: awake and oriented x3 Eyes General: appearance normal, both eyes and all related structures Conjunctivae: conjunctivae normal Sclera: sclerae normal Resp Effort & Inspection: normal respiratory effort and able to speak in complete sentences Auscultation: clear to auscultation bilaterally Cardio Jugular venous pressure: no JVD Rate: regular rate Rhythm: regular rhythm Heart Sounds: S1 normal and S2 normal GI Inspection: non-distended Palpation: soft, no guarding, no hernias and nontender Auscultation: normal bowel sounds Skin General skin exam: normal turgor Neuro General: patient alert, patient awake and patient oriented x3 Cognition: normal cognition Extrem Right lower extremity: no edema Left lower extremity: no edema
--- NOTE | 2022-07-27 19:20 | PDOC.DSDIS_ITS ---
Date of service: 07/28/22 Time of Service: 12:57 Discharge Plan Disposition Patient Disposition: Home Condition: Good Discharge Details Reason For Visit: Screening colonoscopy Attending Provider: Cholo Blancas Primary Care Provider: Judy Melgoza Home Meds and New Rx's Prescriptions: Continued acetaminophen [Tylenol Extra Strength] 500 mg tablet 500 mg PO Q6H PRN ibuprofen 200 mg capsule 200 mg PO Q6H PRN ascorbate calcium (vitamin C) 500 mg tablet 500 mg PO BID cholecalciferol (vitamin D3) 25 mcg (1,000 unit) capsule 25 mcg PO DAILY calcium carbonate-vitamin D3 [Calcium 600 with Vitamin D3] 600 mg(1,500mg) - 500 unit capsule 1 cap PO DIRECTED cyanocobalamin (vitamin B-12) 1,000 mcg capsule 1,000 mcg PO DAILY albuterol sulfate [ProAir HFA] 90 mcg/actuation HFA aerosol inhaler 1 - 2 puff Inhalation Q4-6H PRN Qty: 1 3RF Rx Instructions: DISPENSE ALBUTEROL INHALER BRAND COVERED BY INSURANCE triamcinolone acetonide 0.1 % cream 1 applic Topical 2-4 times daily PRN Qty: 15 2RF Rx Instructions: Apply thin film to affected area (hands, forearms) 2-4 times daily until resolution budesonide-formoterol [Symbicort] 160-4.5 mcg/actuation HFA aerosol inhaler 2 puff Inhalation BID Qty: 3 3RF sertraline 100 mg tablet 150 mg PO DAILY Qty: 135 3RF Rx Instructions: dx: anxiety Claritin Liqui-Gel 10 MG capsule 10 mg PO DAILY PRN levothyroxine 50 mcg tablet 50 mcg PO DAILY Qty: 90 3RF metoprolol succinate 25 mg tablet extended release 24 hr 25 mg PO DAILY Qty: 90 3RF gabapentin 100 mg capsule 100 mg PO TID Qty: 270 3RF Discharge Instructions Instructions: Colorectal Polyps (GEN), Lipoma (GEN) Additional Instructions: Keri, We were able to complete your colonoscopy today without any problems. I did find an abnormality in the cecum (which is the first part of your large intestine). It has some features consistent with a polyp, but I actually think it may be a submucosal lipoma. Lipomas are benign (noncancerous) tumors that occur anywhere in the body. They are not dangerous at all. Regardless of what this is, I did remove it today. We will take a week or so for me to get the final results on the pathology report, but I will be in touch when I have them with my final recommendations for your next colonoscopy. 1. If tolerated, consume a soft, low fiber diet for 1-2 days. 2[address] Do not drive, drink alcohol, operate machinery, make critical decisions, or do activities that require coordination or balance for 24 hours. 3. Because air was put into your colon during the procedure, expelling air from your rectum (passing gas or farting) is normal. 4. You may not have a bowel movement for 1-3 days because of the colonoscopy prep. This is normal. 5. Go directly to the emergency room if you notice any of the following: Develop chills (warm to touch), or if you have a thermometer and your temperature is above 101 Difficulty breathing or difficultly swallowing Persistent vomiting Severe abdominal pain, other than gas cramps Severe chest pain Black, tarry stools Any bleeding ? exceeding one tablespoon 6. Call your physician if the site where your intravenous was started becomes red, swollen, painful, and warm to touch. 7. Your physician has reviewed your pre-procedure medications. Please continue to take those medications as previously ordered. You will be given specific information/education regarding any changes to your medications before leaving. Activity:: Activity as Tolerated Diet:: As Tolerated Discharge Orders Discharge Orders: Discharge Order (Routine); Ordered 07/27/22 Ordered By: Cholo Blancas DS: Diagnosis Discharge Diagnosis (1) Encounter for screening colonoscopy: Status: Acute Asessment and Plan: Follow-up on polypectomy path
--- NOTE | 2022-07-27 19:21 | W.COLOREPORT ---
Date of service: 07/28/22 Time of Service: 12:55 Colonoscopy Report Date of procedure: 07/28/22 Pre-op diagnosis general: Screening colonoscopy Post-op diagnosis procedure note: other (Cecal polyp) Procedure: Colonoscopy polypectomy Surgeon: Cholo Blancas Anesthesia Type: General:No Airway Estimated blood loss (mL): 10 Pathology: other (Cecal polyp) Complications: None Disposition: same day Indications: 56 y/o female with history of asthma, anxiety and hypothyroidism presents for her first colonoscopy screening pre-op. She denies a family history of colon cancer. She denies any changes in bowel habits including bloody or black tarry stools, abdominal pain, diarrhea or constipation. She denies constitutional symptoms. Denies use of marijuana or any other recreational or illegal drugs. Prep: Miralax/Dulcolax Procedure Start Time: 12:16 Procedure End Time: 12:41 Retraction Time: 17 Findings: Cecal polyp Procedure Description: After the induction of monitored anesthetic care, and with the patient in left lateral decubitus position, I began by performing an external anorectal exam.? Perineum and skin were normal, as was the anal verge.? There was no evidence of external hemorrhoids.? Next, I performed a digital rectal exam.? I did not appreciate any abnormal findings.? Next, I advanced a colonoscope into the rectal vault.? I performed retroflexion.? This was normal.? Using insufflation, I then advanced the colonoscope beyond the rectal folds and into the sigmoid colon before advancing towards the cecum.? The quality of the prep was excellent.? The scope was noted to be in the cecum by identification of the ileocecal valve and appendiceal orifice.? Just above the ileocecal valve was a 0.75 cm sessile mucosal abnormality. Margins of it appeared consistent with a submucosal lipoma. I removed it with cold forceps polypectomy. There was minimal bleeding. I then began withdrawing the colonoscope using repeated irrigation as necessary for full evaluation of the colonic mucosa. ?Once the scope was withdrawn to the level of the rectum, great care was taken to examine portions of the rectal folds.? Finally, the scope was withdrawn and the patient was brought to the same-day surgery recovery unit as the anesthetic wore off. ?The findings and instructions were shared with the patient prior to discharge.
[2022-07-28 11:01] VITALS: BP 172/91; PULSE 77; RESP 18; TEMP 36.9; O2SAT 100
[2022-07-28 11:25] VITALS: BMI 22.3
[2022-07-28] MEDS: Lactated Ringers 1,000 ML 80 ML IV (11:41)
--- NOTE | 2022-07-28 12:36 | BOWEL_PTH ---
PATIENT: Keri Rios LOC: [facility] U#:[id number] AGE/SX: 56/F ROOM: RE07/28/[address]: Cholo Blancas MD : 1965 BED: DIS: 07/28/2022 SPEC #: [id number] RECD: 07/28/22 13:16 STATUS: HENRIK RE #: [id number] JAQUELINE: 07/28/22 12:[address]: Cholo Blancas DEPT: Surgical Specimen RECD BY: Reta Carter ENTERED: 07/28/22 13:16 SP TYPE: Bowel OTHR DR: Judy eMlgoza APRN Tissues: 1 - BIOPSY BOWEL Procedures: GROSS AND MICRO LEVEL 4 Comments: [id number]
[2022-07-28 12:53] VITALS: BP 120/82; PULSE 83; RESP 14; TEMP 36.3; O2SAT 98
[2022-07-28 13:19] VITALS: BP 148/85; PULSE 66; RESP 16; TEMP 36.4; O2SAT 100
--- NOTE | 2022-07-29 14:31 | W.ANESPOSTOP ---
Postoperative Evaluation Date, Time and Location Date Performed: 07/28/22 Time Performed: 13:19 Patient Location: Day Surgery Unit Vital Signs Most Recent Imported Vital Signs: Most Recent Vital Signs Temp Pulse Resp BP Pulse Ox 36.4 C L 66 16 148/85 H 100 07/28/22 13:19 07/28/22 13:19 07/28/22 13:19 07/28/22 13:19 07/28/22 13:19 Pain Score Most Recent Pain Score: Most Recent Pain Score Pain Level 0 07/28/22 13:19 Assessment Mental Status: Awake (Alert & Oriented to Patient Baseline) Airway and Respiratory Function: Patent airway with normal (patient baseline) respiratory exam Cardiovascular Function: Hemodynamically Stable Hydration Status: Adequately Hydrated Nausea & Vomiting: No Nausea or Vomiting Pain: Pt. Denies Any Pain Peripheral Nerve Block: Patient did not receive a nerve block
== END 2022-07-28 13:40 | disposition home or self-care (01) ==
PROVIDERS: PCP Nurse Practitioner Family; Visit Provider Surgery
PROC: 0DJD8ZZ Inspection of Lower Intestinal Tract, Via Natural or Artificial Opening Endoscopic (ICD-10-PCS; CPT 45378; principal; 2022-07-28 12:00)
DX: Z12.11 Encounter for screening for malignant neoplasm of colon (principal); D17.5 Benign lipomatous neoplasm of intra-abdominal organs; K63.89 Other specified diseases of intestine
CPT/HCPCS: 45380; 88305

== ENCOUNTER 2022-11-05 10:56 | Outpatient (REF) | payer BC, SELFPAY ==
--- NOTE | 2022-11-05 10:15 | PAPFT_PTH ---
PATIENT: Keri Rios LOC: [facility] U#:[id number] AGE/SX: 56/F ROOM: RE11/05/[address]: Judy Melgoza APRN : 1965 BED: DIS: 11/05/2022 SPEC #: [id number] RECD: 11/05/22 17:22 STATUS: HENRIK REQ #: [id number] JAQUELINE: 11/05/22 10:[address]: Judy Melgoza DEPT: [facility] Cytology RECD BY: Reta Carter Tissues: 1 - CX/ENDOCX FOR PAP SMEARS Procedures: PAP THIN PREP/UVM Screening HPV DNA PROBE Comments: [id number]
== END 2022-11-05 10:57 | disposition home or self-care (01) ==
LOC: LBN 10:56
PROVIDERS: PCP Nurse Practitioner Family; Visit Provider Nurse Practitioner Family
DX: Z12.4 Encounter for screening for malignant neoplasm of cervix (principal); Z11.51 Encounter for screening for human papillomavirus (HPV)
CPT/HCPCS: 88142; 87624

== ENCOUNTER 2023-05-08 01:29 | Outpatient (CLI) | payer BC, SELFPAY ==
[2023-05-08 13:24] LABS: ALT 15 U/L (14-59); AST 17 U/L (15-37); Albumin 3.9 g/dL (3.4-5.0); Alkaline Phosphatase 126 U/L (46-116); Anion Gap 6.3 mmol/L (3-11); BUN 6 mg/dL (7-18); Bilirubin, Total 0.7 mg/dL (0.2-1.0); CO2 27.7 mmol/L (21.0-32.0); CREATININE 0.7 mg/dL (0.55-1.02); Calcium 9.2 mg/dL (8.5-10.1); Calculated LDL 99 mg/dL (<100); Chloride 97 mmol/L (98-107); Cholesterol 184 mg/dL (<200); Estimated GFR 99.57 (mL/min/1.73m2); Glucose 100 mg/dL (74-106); HDL Cholesterol 76 mg/dL (40-60); Potassium 3.8 mmol/L (3.5-5.1); Sodium 131 mmol/L (136-145); TSH (W/Ref FT4) 2.53 uIU/mL (0.36-3.74); Total Protein 7.1 g/dL (6.4-8.2); Triglyceride 47 mg/dL (<150)
== END 2023-05-08 01:30 | disposition home or self-care (01) ==
PROVIDERS: PCP Nurse Practitioner Family; Visit Provider Nurse Practitioner Adult Health
DX: I10 Essential (primary) hypertension (principal); R79.89 Other specified abnormal findings of blood chemistry; E87.1 Hypo-osmolality and hyponatremia
CPT/HCPCS: 36415; 80053; 80061; 84443

== ENCOUNTER 2024-05-13 01:01 | Outpatient (CLI) | payer BC, SELFPAY ==
[2024-05-13 13:59] LABS: ALT 23 U/L (14-59); AST 24 U/L (15-37); Albumin 3.9 g/dL (3.4-5.0); Alkaline Phosphatase 106 U/L (46-116); Anion Gap 5.6 mmol/L (3-11); BUN 5 mg/dL (7-18); Bilirubin, Total 0.7 mg/dL (0.2-1.0); CO2 29.4 mmol/L (21.0-32.0); CREATININE 0.5 mg/dL (0.55-1.02); Calcium 9.2 mg/dL (8.5-10.1); Calculated LDL 88 mg/dL (<100); Chloride 98 mmol/L (98-107); Cholesterol 178 mg/dL (<200); Estimated GFR 107.31 (mL/min/1.73m2); Glucose 92 mg/dL (74-106); HDL Cholesterol 75 mg/dL (>or=50); Potassium 4.8 mmol/L (3.5-5.1); Sodium 133 mmol/L (136-145); TSH (W/Ref FT4) 2.57 uIU/mL (0.36-3.74); Total Protein 6.9 g/dL (6.4-8.2); Triglyceride 77 mg/dL (<150)
== END 2024-05-13 01:02 | disposition home or self-care (01) ==
PROVIDERS: PCP Nurse Practitioner Adult Health; Visit Provider Nurse Practitioner Adult Health
DX: I10 Essential (primary) hypertension (principal); E03.9 Hypothyroidism, unspecified; E87.1 Hypo-osmolality and hyponatremia
CPT/HCPCS: 36415; 80053; 80061; 84443

== ENCOUNTER 2024-06-10 01:48 | Outpatient (CLI) | payer BC, SELFPAY ==
--- NOTE | 2024-06-10 07:45 | DI.MAMMO_ITS ---
Exam(s) MAMMO SCREENING EXAM: MAMMO SCREENING CLINICAL HISTORY: screening,z12.39 TECHNIQUE: Mammograms were interpreted according to the usual protocol including computer analysis w [employer] CAD system, tomosynthesis and C-view imaging. COMPARISON: 2015 through 2022 FINDINGS: The breasts are composed of heterogeneously dense fibroglandular densities, Breast Density category C . No suspicious masses or suspicious microcalcifications are seen. No skin thickening or abnormal axillary lymph nodes are seen. There has been no significant change from prior exams. IMPRESSION: BI-RADS Category 1, Negative mammogram. Yearly screening mammography is recommended. Breast Density Category C, heterogeneously Dense. Breast density Category C or D implies that the patient has dense breast tissue. Dense breast tissue can make it harder to find cancer on a mammogram. Dense breast tissue is also associated with an incr eased risk of breast cancer. This information about the result of the mammogram report was provided to the patient to raise their awareness. Use this report when you speak with the patient about their risks for breast cancer, which includes their family history. At that time, you may recommend additional screening tests (Ultrasoun d or MRI) as these tests may add significant information. A negative radiographic report should not delay biopsy if a dominant or clinically suspicious mass is present. Up to ten percent of cancers are not identified on mammography. A negative report may reinforce clinical impression. Adenosis and dense breasts may obscure an underlying neoplasm. False positive reports average 6 to 10%.
== END 2024-06-10 02:08 ==
LOC: DI 01:48
PROVIDERS: PCP Nurse Practitioner Adult Health; Visit Provider Nurse Practitioner Adult Health
DX: Z12.31 Encounter for screening mammogram for malignant neoplasm of breast (principal); R92.323 Mammographic fibroglandular density, bilateral breasts
CPT/HCPCS: 77063; 77067